=== PATIENT | female | born 1965 | race Caucasian/White ===

== ENCOUNTER 2017-03-16 08:42 | Day surgery (SDC) | payer SELFPAY ==
[2017-03-16] VITALS (10 sets, daily range): BP systolic 109–160; BP diastolic 57–70; PULSE 66–86; TEMP 97.8
[~2017-03-16] VITALS: Ht 147.3 cm; Wt 85.0 kg
[~2017-03-16 08:42] MED LIST: ATIVAN1 MG PO; BENTYL 10MG10 MG/CAP; DESYREL DIVIDO150 M1 PO; LEVOTHROID0.125 MG PO; LIPITOR20 MG PO; METOPROLOL SUCC25 MG PO; SIMVASTATIN40 MG PO; SYNTHROID0.125 MG PO; TRAZODO50 MG PO; TRICOR145 MG PO; TYLENOL 500MG500 MG PO; TYLENOL PM EXTR1 TA1 PO; VITAMIN D32000 IU PO; ZANTAC 7575 MG PO; ZOLOFT 25MG25 MG; ZOLOFT100 MG PO
[2017-03-16] MEDS ORDERED: SYNTHROID0.175 MG PO (10:02)
[2017-03-16] MEDS ORDERED: DEXILANT60 MG PO (10:03)
[2017-03-16] MEDS ORDERED: STRATTERA80 MG PO (10:04)
[2017-03-16] MEDS ORDERED: ZOLOFT 100MG100 MG PO (10:05)
[2017-03-16] MEDS ORDERED: DESYREL DIVIDO150 M1 PO (10:06)
[2017-03-16] MEDS ORDERED: BENTYL 10MG10 MG/CAP PO (10:06)
[2017-03-16] MEDS ORDERED: VITAMIN D 1001000 IU PO (10:07)
[2017-03-16] MEDS ORDERED: CALCIUM 600/VIT1 CAP PO (10:07)
== END 2017-03-16 16:37 | disposition home or self-care (01) ==
LOC: SDCO 08:42
DX: K80.10 Calculus of gallbladder with chronic cholecystitis without obstruction (principal); E03.9 Hypothyroidism, unspecified; R00.0 Tachycardia, unspecified; K21.9 Gastro-esophageal reflux disease without esophagitis; F41.9 Anxiety disorder, unspecified; F32.9 Major depressive disorder, single episode, unspecified; F43.10 Post-traumatic stress disorder, unspecified
CPT/HCPCS: J0690; J1100; J1170; J1200; J2270; J2405; J2550; J2704; J2710; J2765; J7120

== ENCOUNTER 2017-06-18 13:44 | Emergency (ER) | payer SELFPAY ==
[~2017-06-18] VITALS: Ht 149.9 cm; Wt 84.1 kg
[~2017-06-18 13:44] MED LIST changes: +BENTYL 10MG10 MG/CAP PO; +CALCIUM 600/VIT1 CAP PO; +DEXILANT60 MG PO; +STRATTERA80 MG PO; +SYNTHROID0.175 MG PO; +VITAMIN D 1001000 IU PO; +ZOLOFT 100MG100 MG PO
[2017-06-18 13:46] VITALS: BP 118/67; PULSE 86; TEMP 98.3
== END 2017-06-18 15:13 | disposition home or self-care (01) ==
LOC: COL.ER 13:44
DX: M54.5 Low back pain (principal); K21.9 Gastro-esophageal reflux disease without esophagitis; E78.00 Pure hypercholesterolemia, unspecified; F32.9 Major depressive disorder, single episode, unspecified; M81.0 Age-related osteoporosis without current pathological fracture